=== PATIENT | female | born 1990 | race Caucasian/White ===

== ENCOUNTER 2017-07-12 03:53 | Emergency (ER) | payer SELFPAY ==
[2017-07-12] MEDS ORDERED: NS 0.9% 1000 ML* 1,000 ML IV ONE (04:14)
[2017-07-12] MEDS ORDERED: Morphine INJ* 4 MG/ML 1 ML CARPUJECT IV ONE ×2 (04:14→04:26)
[2017-07-12] MEDS ORDERED: Ondansetron INJ* 2 MG/ML VIAL IV ONE (04:14)
[2017-07-12] MEDS ORDERED: Morphine INJ* 2 MG/ML 1 ML CARPUJECT IV ONE (04:17)
[2017-07-12] MEDS ORDERED: Morphine INJ* 4 MG/ML 1 ML CARPUJECT ONE (04:27)
[2017-07-12 04:30] LABS: Hematocrit 41 % (35-47); Mean Corpuscular HGB Conc 34 g/dl (31-36); Mean Corpuscular Hemoglobin 32 pg (27-31); Mean Corpuscular Volume 93 fL (80-97); Mean Platelet Volume 9 um3 (7.4-10.4); Red Blood Count 4.43 10^6/ul (4.0-5.4); Red Cell Distribution Width 13 % (10.5-15); White Blood Count 7.5 10^3/ul (3.5-10.8)
[2017-07-12 04:43] LABS: ALT 12 U/L (7-52); AST 24 U/L (13-39); Albumin 4.8 g/dL (3.2-5.2); Alkaline Phosphatase 69 U/L (34-104); Anion Gap 9 mmol/L (2-11); BUN/Creatinine Ratio 14.3 (8-20); Blood Urea Nitrogen 10 mg/dL (6-24); CO2 Carbon Dioxide 23 mmol/L (22-32); Calcium 9.8 mg/dL (8.6-10.3); Chloride 103 mmol/L (101-111); EGFR African American 131.1 (>60); Glucose 112 mg/dL (70-100); Lipase 11 U/L (11.0-82.0); Potassium 3.8 mmol/L (3.5-5.0); Sodium 135 mmol/L (133-145); Total Protein 7.8 g/dL (6.4-8.9)
[2017-07-12] MEDS ORDERED: Iohexol 300* (CONTRAST) 10 ML SDV IV ONE (04:56)
[2017-07-12] MEDS ORDERED: Pantoprazole IV* 40 MG IV ONE (05:44)
[2017-07-12 05:50] LABS: Urine Bilirubin Negative (Negative); Urine Glucose Negative (Negative); Urine Nitrite Negative (Negative)
[2017-07-12] MEDS ORDERED: Ketorolac INJ* 30 MG/ML 1 ML VIAL IV PUSH ONE (06:51)
--- NOTE | 2017-07-12 06:57 | ED ---
Avtar Villanueva Rebecca, scribed for Uday Umanzoruel on 07/12/17 at 0416 . Abdominal Pain/Female - HPI Summary HPI Summary: Pt is a 27 y/o F who presents to ED c/o abdominal pain. Sx began at 1900 last night. Pain is in the epigastric region and is currently severe, ranked 9/10 and characterized as sharp/burning. Sx aggravated and alleviated by nothing. Denies N/V. - History of Current Complaint Chief Complaint: EDAbdPain Stated Complaint: ABD PAIN Time Seen by Provider: 07/12/17 04:11 Hx Obtained From: Patient Onset/Duration: Lasting Hours, Still Present Severity Currently: Severe Pain Intensity: 9 Pain Scale Used: 0-10 Numeric Location: Epigastric Character: Sharp, Burning Aggravating Factor(s): Nothing Alleviating Factor(s): Nothing Associated Signs and Symptoms: Positive: Negative. Negative: Nausea, Vomiting Allergies/Adverse Reactions: Allergies Allergy/AdvReac Type Severity Reaction Status Date / Time No Known Allergies Allergy Verified 07/12/17 03:59 PMH/Surg Hx/FS Hx/Imm Hx Previously Healthy: Yes Endocrine/Hematology History: Denies: Hx Diabetes Cardiovascular History: Denies: Hx Hypertension Infectious Disease History: No Infectious Disease History: Denies: Traveled Outside the [place] in Last 30 Days - Family History Known Family History: Negative: Diabetes - Social History Alcohol Use: None Substance Use Type: Reports: None Smoking Status (MU): Current Every Day Smoker Review of Systems Negative: Fever Positive: Abdominal Pain. Negative: Vomiting, Nausea All Other Systems Reviewed And Are Negative: Yes Physical Exam - Summary Physical Exam Summary: Appearance: Well appearing, no pain distress Skin: warm, dry, reflects adequate perfusion Head/face: normal Eyes: EOMI, FRANCK ENT: normal Neck: supple, nontender Respiratory: CTA, breath sounds present Cardiovascular: RRR, pulses symmetrical Abdomen: tenderness in the epigastrum and RUQ, soft Bowel: present Musculoskeletal: normal, strength/ROM intact Neuro: normal, sensory motor intact, A&Ox3 Triage Information Reviewed: Yes Vital Signs On Initial Exam: Initial Vitals Temp Pulse Resp BP Pulse Ox 98.0 F 84 15 127/73 98 07/12/17 03:55 07/12/17 03:55 07/12/17 03:55 07/12/17 03:55 07/12/17 03:55 Vital Signs Reviewed: Yes Diagnostics - Vital Signs Vital Signs Temp Pulse Resp BP Pulse Ox 07/12/17 03:55 98.0 F 84 15 127/73 98 - Laboratory Lab Results: Lab Results 07/12/17 07/12/17 07/12/17 Range/Units 04:15 04:15 04:15 WBC 7.5 (3.5-10.8) 10^3/ul RBC 4.43 (4.0-5.4) 10^6/ul Hgb 14.0 (12.0-16.0) g/dl Hct 41 (35-47) % MCV 93 (80-97) fL MCH 32 H (27-31) pg MCHC 34 (31-36) g/dl RDW 13 (10.5-15) % Plt Count 197 (150-450) 10^3/ul MPV 9 (7.4-10.4) um3 Neut % (Auto) 76.7 (38-83) % Lymph % (Auto) 16.2 L (25-47) % [place] % (Auto) 6.2 (1-9) % Eos % (Auto) 0.7 (0-6) % Baso % (Auto) 0.2 (0-2) % Absolute Neuts (auto) 5.8 (1.5-7.7) 10^3/ul Absolute Lymphs (auto) 1.2 (1.0-4.8) 10^3/ul Absolute Monos (auto) 0.5 (0-0.8) 10^3/ul Absolute Eos (auto) 0.1 (0-0.6) 10^3/ul Absolute Basos (auto) 0 (0-0.2) 10^3/ul Absolute Nucleated RBC 0 10^3/ul Nucleated RBC % 0 INR (Anticoag Therapy) 0.97 (0.89-1.11) APTT 30.4 (26.0-36.3) seconds Sodium 135 (133-145) mmol/L Potassium 3.8 (3.5-5.0) mmol/L Chloride 103 (101-111) mmol/L Carbon Dioxide 23 (22-32) mmol/L Anion Gap 9 (2-11) mmol/L BUN 10 (6-24) mg/dL Creatinine 0.70 (0.51-0.95) mg/dL Est GFR ( Amer) 131.1 (>60) Est GFR (Non-Af Amer) 102.0 (>60) BUN/Creatinine Ratio 14.3 (8-20) Glucose 112 H (70-100) mg/dL Calcium 9.8 (8.6-10.3) mg/dL Total Bilirubin 0.90 (0.2-1.0) mg/dL AST 24 (13-39) U/L ALT 12 (7-52) U/L Alkaline Phosphatase 69 (34-104) U/L Troponin I 0.00 (<0.04) ng/mL Total Protein 7.8 (6.4-8.9) g/dL Albumin 4.8 (3.2-5.2) g/dL Globulin 3.0 (2-4) g/dL Albumin/Globulin Ratio 1.6 (1-3) Lipase 11 (11.0-82.0) U/L Beta HCG, Quant < 0.60 mIU/mL Urine Color Urine Appearance Urine pH (5-9) Ur Specific [place] (1.010-1.030) Urine Protein (Negative) Urine Ketones (Negative) Urine Blood (Negative) Urine Nitrate (Negative) Urine Bilirubin (Negative) Urine Urobilinogen (Negative) Ur Leukocyte Esterase (Negative) Urine Glucose (Negative) 07/12/17 Range/Units 05:30 WBC (3.5-10.8) 10^3/ul RBC (4.0-5.4) 10^6/ul Hgb (12.0-16.0) g/dl Hct (35-47) % MCV (80-97) fL MCH (27-31) pg MCHC (31-36) g/dl RDW (10.5-15) % Plt Count (150-450) 10^3/ul MPV (7.4-10.4) um3 Neut % (Auto) (38-83) % Lymph % (Auto) (25-47) % [place] % (Auto) (1-9) % Eos % (Auto) (0-6) % Baso % (Auto) (0-2) % Absolute Neuts (auto) (1.5-7.7) 10^3/ul Absolute Lymphs (auto) (1.0-4.8) 10^3/ul Absolute Monos (auto) (0-0.8) 10^3/ul Absolute Eos (auto) (0-0.6) 10^3/ul Absolute Basos (auto) (0-0.2) 10^3/ul Absolute Nucleated RBC 10^3/ul Nucleated RBC % INR (Anticoag Therapy) (0.89-1.11) APTT (26.0-36.3) seconds Sodium (133-145) mmol/L Potassium (3.5-5.0) mmol/L Chloride (101-111) mmol/L Carbon Dioxide (22-32) mmol/L Anion Gap (2-11) mmol/L BUN (6-24) mg/dL Creatinine (0.51-0.95) mg/dL Est GFR ( Amer) (>60) Est GFR (Non-Af Amer) (>60) BUN/Creatinine Ratio (8-20) Glucose (70-100) mg/dL Calcium (8.6-10.3) mg/dL Total Bilirubin (0.2-1.0) mg/dL AST (13-39) U/L ALT (7-52) U/L Alkaline Phosphatase (34-104) U/L Troponin I (<0.04) ng/mL Total Protein (6.4-8.9) g/dL Albumin (3.2-5.2) g/dL Globulin (2-4) g/dL Albumin/Globulin Ratio (1-3) Lipase (11.0-82.0) U/L Beta HCG, Quant mIU/mL Urine Color Straw Urine Appearance Clear Urine pH 6.0 (5-9) Ur Specific Ub[place] 1.005 L (1.010-1.030) Urine Protein Negative (Negative) Urine Ketones 1+ H (Negative) Urine Blood Negative (Negative) Urine Nitrate Negative (Negative) Urine Bilirubin Negative (Negative) Urine Urobilinogen Negative (Negative) Ur Leukocyte Esterase Negative (Negative) Urine Glucose Negative (Negative) Result Diagrams: 07/12/17 04:15 07/12/17 04:15 Lab Statement: Any lab studies that have been ordered have been reviewed, and results considered in the medical decision making process. Abdominal Pain Fem Course/Dx - Course Course Of Treatment: Pt is a 27 y/o F who presents to ED c/o abdominal pain. Sx began at 1900 last night. Pain is in the epigastric region and is currently severe, ranked 9/10 and characterized as sharp/burning. Denies N/V. Troponin of 0.00. In the ED course, pt received morphine, zofran and fluids. Pt will be signed out to Dr. Knox, pending disposition, awaiting CT Abd/Pel. Pt medications reviewed. - Diagnoses Differential Diagnosis: Positive: Appendicitis, Diverticulitis, Gall Bladder Disease, Pancreatitis, Peptic Ulcer Disease, Renal Colic, Urinary Tract Infection Provider Diagnoses: Abdominal pain Discharge - Discharge Plan Condition: Stable Disposition: OTHER Discharge Disposition Comment: Pt will be signed out to Dr. Knox, pending dispo , awaiting CT Abd/Pel Referrals: No Primary Care Phys,NOPCP [Primary Care Provider] - The documentation as recorded by the Avtar barnhart Rebecca accurately reflects the service I personally performed and the decisions made by , Amrit Umanzor.
[2017-07-12 08:57] VITALS: BP 107/60
--- NOTE | 2017-07-12 10:29 | RAD ---
CLINICAL HISTORY: Mid epigastric pain COMPARISON: None TECHNIQUE: Contrast enhanced CT examination of the abdomen and pelvis from the lung bases through the initial tuberosities. The patient received 85 mL Omnipaque 300 intravenously prior to imaging.The patient received oral contrast as well prior to imaging. FINDINGS: VISUALIZED LUNG BASES: The visualized lung bases are grossly clear. There is no pleural effusion. ABDOMEN AND PELVIS: The liver, spleen, pancreas and adrenal glands are grossly normal in appearance. The gallbladder is normal. The kidneys are normal in appearance without focal mass, calcification or signs of hydronephrosis. There are contrast has progressed as far as the transverse colon. The small and large bowel are not distended. The patient's normal appendix is identified in the right lower quadrant with gas in the lumen measuring up to 5 mm in diameter (coronal image 47). Gas and stool seen throughout the length of the otherwise normal-appearing colon. There is no gross retroperitoneal or mesenteric lymphadenopathy. In the right adnexa there is a somewhat irregular low-density structure measuring 2 cm in greatest axial dimension most consistent with a follicle in a woman of this age. Incidentally noted is a retroflexed uterus. There is a small amount of fluid in the cul-de-sac. The abdominal aorta and iliac arteries are normal in course and diameter. There are no sinister bone lesions. IMPRESSION: 1. Pelvic findings include an involuting follicle in the right hemipelvis and a small amount of free fluid in the cul-de-sac. Please correlate to stage of menstruation. 2. Normal appendix and normal-appearing gastrointestinal tract.
--- NOTE | 2017-07-12 18:41 | ED ---
Jesus Villanueva Angela, scribed for Reji Rondon MD on 07/12/17 at 0719 . Progress - Progress Note Progress Note: This pt was signed out by Dr. Umanzor, pending disposition, awaiting abdomen/ pelvis CT. Physical exam: VITAL SIGNS: Reviewed. GENERAL: Patient is a well-developed and nourished female who is lying comfortable in the stretcher. Patient is not in any acute respiratory distress. HEAD AND FACE: Normocephalic and atraumatic. EYES: PERRLA, EOMI x 2, No injected conjunctiva. EARS: Hearing grossly intact. Ear canals and tympanic membranes are WNL. MOUTH: Oropharynx within normal limits. NECK: Supple, trachea is midline, no adenopathy, no JVD. CHEST: Symmetric, no tenderness at palpation LUNGS: Clear to auscultation bilaterally. No wheezing or crackles. CVS: RRR, S1 and S2 present, no murmurs or gallops appreciated. ABDOMEN: Soft, non-tender. No signs of distention. Positive bowel sounds. No rebound no guarding, and no masses palpated. No abdominal bruit or pulsations. EXTREMITIES: FROM in all major joints, no edema, no cyanosis or clubbing. NEURO: Alert and oriented x 3. No acute neurological deficits. Speech is normal. SKIN: Dry and warm The pt will be discharged home in stable condition with a diagnosis of abdominal pain. - Results/Orders Results/Orders: Abdomen/pelvis CT, per radiologist: No bowel obstruction, colitis, or free air. Normal appendix. Unremarkable stomach, liver, spleen, pancreas, kidneys, and gallbladder. Small physiologic free fluid cul-de-sac. 2.2 cm involuting corpus luteum right ovary. ED physician has reviewed this radiology report and agrees. Re-Evaluation - Re-Evaluation First Eval Re-Evaluation Time: 08:37 Comment: I discussed the CT abdomen/pelvis results with the pt. Pt is feeling better. Course/Dx - Course Course Of Treatment: The pt was signed out by Dr. Umanzor to follow up on the abdomen/pelvis CT. Test results without any significant abnormalities. Abdominal/pelvic CT shows No bowel obstruction, colitis, or free air. Normal appendix. Unremarkable stomach, liver, spleen, pancreas, kidneys, and gallbladder. Small physiologic free fluid cul-de-sac. 2.2 cm involuting corpus luteum right ovary. The pt does not have any complaints, she is feeling better. She will be discharged home with follow up from her PCP. I will send a prescription for Prilosec and she will follow up with her PCP. - Diagnoses Provider Diagnoses: Abdominal pain The documentation as recorded by the Jesus barnhart Angela accurately reflects the service I personally performed and the decisions made by me, Reji Rondon MD.
== END 2017-07-12 08:56 | disposition home or self-care (01) ==
LOC: ED 03:53
DX: R10.9 Unspecified abdominal pain (principal)
CPT/HCPCS: 36415; 74177; 80053; 81003; 83690; 84484; 84702; 85025; 85610; 85730; 96374; 96375; 99283; J2270; J2405; Q9967